=== PATIENT | male | born 1980 | race Caucasian/White ===

== ENCOUNTER 2018-01-10 19:55 | Observation (INO) | payer BC, SELFPAY ==
[2018-01-10 19:56] VITALS: BP 119/88; PULSE 89; RESP 18; TEMP 36.6; O2SAT 100; BMI 22.1
--- NOTE | 2018-01-10 20:03 | EKG12_ITS ---
Test Reason : RUHLIN Blood Pressure : / mmHG Vent. Rate : 084 BPM Atrial Rate : 084 BPM P-R Int : 170 ms QRS Dur : 102 ms QT Int : 386 ms P-R-T Axes : 062 068 060 degrees QTc Int : 456 ms Normal sinus rhythm Normal ECG Confirmed by JOSE RAFAEL STEARNS, ISAC ([id number]), subeditor ERIN DENNIS ([id number] on 01/14/2018 3:46:14 PM Referred By: Confirmed By:ISAC MANTILLA MD
[2018-01-10] MEDS: 0.9% Normal Saline 1,000 ML 1000 ML IV ×2 (20:05→21:42)
[2018-01-10 20:14] LABS: Absolute Lymphocyte Count 1.18 X10^3/ul (0.83-4.51); Absolute Neutrophil Count 6.8 X10^3/uL (2.0-7.7); Basophil# 0.02 X10^3/uL; Basophil% 0.2 % (0-1); Hematocrit 37.7 % (40-54); Hemoglobin 13.3 g/dl (13.0-16.5); Lymphocyte # 1.18 X10^3/ul (4.0); Lymphocyte % 13.5 % (19-41); Mean Corp Hgb Conc 35.3 g/gl (32-36); Mean Corpuscular Hgb 30.4 pg (27.0-32.0); Mean Corpuscular Volume 86.3 fL (80-94); Mean Platelet Vol. 9.7 fl (6.2-12.0); Monocyte# 0.68 X10^3/uL; Monocyte% 7.8 % (0-10); Neutrophil # 6.82 X10^3/uL (2.7-7.7); Neutrophil % 78.4 % (47-70); Platelet Count 229 K/mm3 (150-450); RBC Distribution Width CV 11.9 % (11.6-14.6); Red Blood Count 4.37 M/mm3 (4.6-6.2); White Blood Count 8.7 K/mm3 (4.4-11.0)
[2018-01-10 20:15] VITALS: BP 116/77; PULSE 84; RESP 17; O2SAT 100
[2018-01-10 20:15] LABS: POSITIVE COUNT NO; POSITIVE DIFFERENTIAL NO; POSITIVE MORPHOLOGY NO
[2018-01-10 20:29] LABS: Anion Gap 8 (5-15); BUN 18 mg/dL (7-18); BUN/Creat Ratio 12.1 RATIO (10-20); Calcium,Total 8.6 mg/dL (8.5-10.1); Chloride 103 mmol/L (98-107); Creatinine, Serum 1.49 mg/dL (0.70-1.30); EST Glomerular Filtration Rate 56 mL/min (>60); Est Glom Filt Rate - Afr Amer 67 mL/min (>60); Glucose 113 mg/dL (74-106); Potassium 3.4 mmol/L (3.5-5.1); Sodium Level 139 mmol/L (136-145)
[2018-01-10 21:14] LABS: CPK Total, Creatine Kinase 1393 U/L (39-308)
--- NOTE | 2018-01-10 21:32 | ED.VISSUMM ---
- ER Visit Summary Date of Service: 01/10/18 Chief Complaint: Shortness of breath History of Present Illness: The patient is a 37 M presenting for evaluation secondary shortness of breath. Patient states that he had just finished running a 50 mile race, he was seated, and stated that he was having increasing shortness of breath even after he had stopped running. He states that he was not having any chest pain or palpitations associated with this. Patient states that the symptoms lasted a number of minutes and then spontaneously resolved. He has never had any prior similar symptoms in the past. Denies any cardiovascular risk factors or PE risk factors. Review of systems otherwise negative. Physical Examination: Vital signs are within normal limits, patient is afebrile. General: Patient is well-nourished well-developed and in no acute distress. Head: Normocephalic, atraumatic Eyes: Pupils equal round and reactive bilaterally, extra occular motion intact bialterally ENT: Moist mucous membranes Neck: Supple, no lymphadenopathy, no JVD, no meningismus CVS: Heart regular rate and rhythm, no murmurs, there is an S3 gallop present, radial pulses 2+ and symmetric Resp: Respirations nondistressed, lung sounds clear bilaterally Abdomen: Soft, nontender, nondistended, no palpable masses, normal bowel sounds Back: Nontender Extremities: Nontender, atraumatic, active full range of motion, no peripheral edema Skin: warm, no rashes, no petechia Neuro: Alert and oriented x 4, CN 2-12 intact, no lateralizing neurological defecits Psyc: Normal affect Test Results: EKG demonstrates sinus rhythm of 84. Diffuse nonlocalizing ST segment elevation with normal T waves potentially consistent with a normal variant versus pericarditis pattern. CBC unremarkable, chemistry shows mild hypokalemia, troponin elevated at 0.06, CK elevated at 1600 Emergency Department Course and Treatment: Patient presented for evaluation secondary to a shortness of breath episode. His workup as noted above showed an elevated CK as well as an elevated troponin. This could all be secondary to the fact that the patient just ran a 50 miles, but regardless he had a shortness of breath episode which could have been a cardiac equivalent and has an elevated troponin as well as CK I believe that he requires observation admission at this time. I will discuss this with the hospitalist. Disposition: Admission Impression: 1. Shortness of breath 2. Elevated troponin 3. Rhabdomyolysis secondary to marathon This note was generated with [employer] dictation software. It may contain incorrect words, spelling, and punctuation that were not noted in review of the chart prior to signing ED Disposition - Plan for ED Patient: Chief Complaint: Shortness of Breath Referrals: Alf Person [Primary Care Provider] -
[2018-01-10 21:43] VITALS: BP 119/79; PULSE 86; RESP 24; TEMP 36.6; O2SAT 100
--- NOTE | 2018-01-10 22:26 | PCM.HP.STD ---
Problem List (1) SOB (shortness of breath) Status: Acute (2) Elevated troponin Status: Acute (3) Rhabdomyolysis Status: Acute History of Present Illness Date of Admission: 01/10/18 Chief Complaint: SOB The patient is a 37 year old male previously healthy is admitted for SOB. He ran a 50 miles marathon and has been SOB since the race. He tried to keep himself well hydrated and also tried to eat prior to the race. He had increase SOB after the race. He has no associated chest pain. No n/v. No palpitation. No cough. Nothing made his SOB better or worse. His SOB was constant but resolved by the time he went to the ED. Past Medical History Allergies Penicillins [PCN] Allergy (Verified 01/10/18 19:55) Other Home Medications: Ambulatory Orders Medication Instructions Recorded Duloxetine HCl [Duloxetine HCl] 1 tab PO DAILY 01/10/18 Nortriptyline HCl [Nortriptyline 1 tab PO DAILY 01/10/18 HCl] Surgical History: no surgical history Psychiatric History: No pertinent psych hx Lives: With Family Smoking Status: Never smoker Alcohol: None Drugs: None - *Family History Maternal History Items: No pertinent history Review of Systems Constitutional: Denies: Chills, Fever, Weight Change HEENT: Denies: Head Aches, Sinus Congestion, Sinus Drainage Cardiovascular: Denies: Chest Pain, Palpitations Respiratory: Denies: Cough, Shortness of breath at rest, Sputum production Gastrointestinal: Denies: Abdominal Pain, Nausea, Vomiting Genitourinary: Denies: Dysuria Musculoskeletal: Denies: Joint Pain, Joint Tenderness Skin: Denies: Rash, Wounds Neurological: Denies: Numbness, Tingling, Focal weakness Psychiatric: Denies: Anxiety, Depression, Homicidal Ideations, Suicidal Ideations Hematologic/ Lymphatic: Denies: Easy Bruising, Easy Bleeding VTE Information - Inpt Only VTE Present on Admission: No VTE Mechan Device Prophylaxis: SCD's VTE Pharm Prophylaxis ordered?: Yes Patient Problems: Active and Suspected Problems SOB (shortness of breath) (Acute) Elevated troponin (Acute) Rhabdomyolysis (Acute) - Physical Exam General: Alert, Oriented x3, Cooperative HEENT: Atraumatic, PERRLA, EOMI, Normocephalic Neck: Supple, No JVD, Negative Carotid Bruits Lungs: Clear to auscultation, Normal air movement Cardiovascular: Regular rate, No murmurs Abdomen: Bowel Sounds Present, Soft, Non Tender Extremities: No edema, Capillary Refill Less than 3 Seconds Skin: No rashes, No breakdown Musculoskeletal: No Tenderness to Palpation of Joints or Extremities Neurological: Cranial nerves II-XII grossly intact Psych/Mental Status: Normal Affect, Appropriate Vital Signs Temp Pulse Resp BP Pulse Ox 97.8 F 86 24 H 119/79 100 01/10/18 21:43 01/10/18 21:43 01/10/18 21:43 01/10/18 21:43 01/10/18 21:43 Assessment/Plan All Active Problems SOB (shortness of breath) (Acute) Elevated troponin (Acute) Rhabdomyolysis (Acute) 37 year old male previously healthy is admitted for SOB. 1) SOB: Probably secondary to oxygen debt from 50 mile marathon which he finished. Resolved by the time he got to the ED. EKG disclosed diffuse nonlocalizing ST segment elevation with normal T waves. Trop slightly elevated. Will get xray in AM. 2) Rhabdomyolysis: CK 1600 Most likely from marathon. Hydration. Renal function wnl. 3) Elevated trop: Probably from marathon race. Trop 0.06 Will get serial trops. Will get ECHO. 4) Prophylaxis: SCD / heparin.
[2018-01-10 22:30] VITALS: BP 130/82; PULSE 90; RESP 16; TEMP 36.7; O2SAT 98
[2018-01-10 22:32] VITALS: PULSE 90
[2018-01-10 22:46] VITALS: BMI 21.6
[2018-01-10] MEDS: 0.9% Normal Saline 1,000 ML 150 ML IV (22:54)
[2018-01-10 23:00] VITALS: BP 122/74
[2018-01-10] MEDS: Nortriptyline 25 MG Capsule 75 MG PO (23:13)
[2018-01-11] VITALS (10 sets, daily range): BP systolic 107–122; BP diastolic 70–79; PULSE 63–90; RESP 16–18; TEMP 36.4–36.6; O2SAT 95–99
[2018-01-11] MEDS: 0.9% Normal Saline 1,000 ML 150 ML IV ×3 (04:36→18:00)
--- NOTE | 2018-01-11 05:50 | RAD_ITS ---
STUDY: X-RAY CHEST REASON FOR EXAM: Male, 37 years old. Shortness of breath TECHNIQUE: 1 view COMPARISON: None. FINDINGS: The lungs are clear and expanded. There is no demonstrated pleural abnormality. Normal size heart. Normal mediastinum and mery. Normal visualized pulmonary arteries. Normal visualized aortic arch and descending thoracic aorta. Normal visualized thoracic spine. Normal visualized ribs, clavicles, and shoulders. There is no demonstrated abnormality of the visualized soft tissue structures of the upper abdomen. RAD/Chest 1 View (Portable) IMPRESSION: Normal x-ray examination of the chest. No acute findings in the lungs Electronically Signed: Kian Hansen, at 10:52 EDT Tel , Service support ,
--- NOTE | 2018-01-11 05:55 | ECHOD_ITS ---
Reason For Study: CHEST PAIN Procedure This was a 2D Doppler, Color Flow transthoracic echocardiogram. Exam performed portable in patient room. Left Ventricle Normal LV size. Left ventricular systolic function is normal. The estimated ejection fraction is 60 %. Transmitral diastolic flow velocities suggest mild (stage 1) diastolic dysfunction (reversed pattern). No regional wall motion abnormalities noted. Right Ventricle Normal RV size. Normal systolic function. Atria Normal left atrium. Normal right atrium. Mitral Valve Normal mitral valve. Tricuspid Valve Normal tricuspid valve. Aortic Valve Normal aortic valve. Pulmonic Valve Normal pulmonic valve. Great Vessels Normal aortic root. The pulmonary artery is normal size. Normal inferior vena cava. Pericardium/Pleural No pericardial effusion. MMode/2D Measurements & Calculations LVIDd: 4.0 cm IVSd: 0.96 cm Ao root diam: 3.4 cm LVIDs: 2.4 cm LVPWd: 1.0 cm LA dimension: 3.0 cm RVDd: 3.9 cm FS: 38.9 % LAV(MOD-bp): 39.0 ml LA A4 area: 11.6 cm2 RA A4 area: 14.6 cm2 LAV(MOD-bp) Indexed: 20.6 ml/m2 LAV(MOD-sp2): 40.6 ml LAV(MOD-sp4): 28.2 ml Time Measurements MV dec time: 0.20 sec Doppler Measurements & Calculations MV E max shiv: 111.0 cm/sec MV V2 max: 123.3 cm/sec MV P1/2t max shiv: 124.2 cm/sec MV A max shiv: 75.1 cm/sec MV max P.1 mmHg MV P1/2t: 80.3 msec MV E/A: 1.5 MV V2 mean: 62.9 cm/sec MV dec slope: 452.9 cm/sec2 MV mean P.9 mmHg MVA(P1/2t): 2.7 cm2 MV V2 VTI: 31.9 cm Ao V2 max: 144.5 cm/sec LV V1 max: 111.0 cm/sec PA V2 max: 82.8 cm/sec Ao max P.3 mmHg LV V1 max P.9 mmHg Ao V2 mean: 96.2 cm/sec LV V1 mean P.6 mmHg Ao mean P.1 mmHg LV V1 mean: 75.2 cm/sec Ao V2 VTI: 29.4 cm LV V1 VTI: 26.6 cm TR max shiv: 188.8 cm/sec TR max P.3 mmHg Interpretation Summary Normal LV size. Left ventricular systolic function is normal. The estimated ejection fraction is 60 %. Transmitral diastolic flow velocities suggest mild (stage 1) diastolic dysfunction (reversed pattern). Ordering Physician: LETTY CARDENAS Referring Physician: JERRY DELANEY Performed By: Valentin Bardales RCS
[2018-01-11 06:34] LABS: Hematocrit 36.8 % (40-54); Hemoglobin 12.5 g/dl (13.0-16.5); Mean Corpuscular Hgb 29.7 pg (27.0-32.0); Mean Corpuscular Volume 87.4 fL (80-94); Mean Platelet Vol. 9.8 fl (6.2-12.0); Platelet Count 206 K/mm3 (150-450); RBC Distribution Width CV 12.6 % (11.6-14.6); RBC Distribution Width SD 40.4 fl (35.1-43.9); Red Blood Count 4.21 M/mm3 (4.6-6.2); White Blood Count 7.5 K/mm3 (4.4-11.0)
[2018-01-11 07:02] LABS: D-Dimer Quantitative (DVT/PE) < 0.27 FEU/ug/m (0.27-0.49)
[2018-01-11 07:03] LABS: Scan Indicated on CBC? Y/N NO
[2018-01-11 07:07] LABS: ALB/GLOB Ratio 1.2 RATIO (0.9-2.4); AST(SGOT) 74 U/L (15-37); Alanine Aminotransfer ALT/SGPT 36 U/L (16-61); Albumin, Serum 3.2 g/dL (3.2-5.0); Alkaline Phosphatase 44 U/L (45-117); Anion Gap 5 (5-15); BUN 16 mg/dL (7-18); BUN/Creat Ratio 14.8 RATIO (10-20); Bilirubin, Direct 0.18 mg/dL (0.00-0.30); CPK Total, Creatine Kinase 2478 U/L (39-308); Calcium,Total 7.9 mg/dL (8.5-10.1); Chloride 109 mmol/L (98-107); Cholesterol 106 mg/dL (200); Creatinine, Serum 1.08 mg/dL (0.70-1.30); EST Glomerular Filtration Rate 81 mL/min (>60); Est Glom Filt Rate - Afr Amer 98 mL/min (>60); Estimated Creatinine Clearance 91.18 ml/min; Globulin 2.6 g/dL (2.2-4.2); Glucose 86 mg/dL (74-106); High Density Lipoprotein 50 mg/dL; Potassium 3.7 mmol/L (3.5-5.1); Protein, Total 5.8 g/dL (6.4-8.2); Sodium Level 142 mmol/L (136-145); Thyroid Stim Hormone (TSH) 4.95 uIU/mL (0.358-3.74); Triglycerides 38 mg/dL; Very Low Density Lipoprotein 8 mg/dL (5-40)
[2018-01-11 08:37] LABS: BNP,B-Type NATRIURETIC PEPTIDE 72.5 pg/mL (0-100)
[2018-01-11] MEDS: DULoxetine Hcl 60 MG Capsule PO (08:51)
--- NOTE | 2018-01-11 16:37 | PCM.PN.HOSP ---
Patient Problems: Active and Suspected Problems SOB (shortness of breath) (Acute) Elevated troponin (Acute) Rhabdomyolysis (Acute) Subjective: The patient was admitted yesterday for subjective shortness of breath after running 50 miles marathon. 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 He ran 100 miles marathon about 4 years ago and runs usually 25 miles. Patient was dehydrated with diaphoresis, shortness of breath probably from heat along with oxygen dept. Complaint of mild muscle soreness in legs Vitals are stable. CK elevated, worsened from 3078-1280 Troponin is mildly elevated probably from rhabdomyolysis Vitals/I&O's: Vital Signs Temp Pulse Resp BP Pulse Ox 97.9 F 81 16 122/79 H 99 01/11/18 10:30 01/11/18 15:01 01/11/18 10:30 01/11/18 10:30 01/11/18 10:30 Oxygen Delivery Method Room Air Weight: 154 lb 12.232 oz Body Mass Index (BMI) 21.6 Intake and Output for Last 24 Hours 01/09/18 01/10/18 01/11/18 23:59 23:59 23:59 Intake Total 3238 / 3238 Output Total 300 / 300 Balance 2938 / 2938 General: Alert, Oriented x3, Cooperative HEENT: Atraumatic, PERRLA, EOMI, Normocephalic Neck: Supple, No JVD, Negative Carotid Bruits Lungs: Clear to auscultation, Normal air movement Cardiovascular: Regular rate, Normal S1, Normal S2, No murmurs Abdomen: Bowel Sounds Present, Soft, Non Tender, Non-Distended Extremities: No edema, Capillary Refill Less than 3 Seconds Skin: No rashes, No breakdown Musculoskeletal: No Tenderness to Palpation of Joints or Extremities Neurological: Cranial nerves II-XII grossly intact Psych/Mental Status: Normal Affect, Appropriate Laboratory Results 01/10/18 23:10: Troponin I 0.051 H 01/11/18 02:00: Troponin I 0.049 H 01/11/18 05:40: WBC 7.5, RBC 4.21 L, Hgb 12.5 L, Hct 36.8 L, MCV 87.4, MCH 29.7, MCHC 34.0, RDW 12.6, RDW Differential 40.4, Plt Count 206, MPV 9.8 06/17/18 05:40: D-Dimer Quant (PE/DVT) < 0.27 L 01/11/18 05:40: Sodium 142, Potassium 3.7, Chloride 109 H, Carbon Dioxide 28.0, Anion Gap 5, BUN 16, Creatinine 1.08, Estim Creat Clear Calc 91.18, Est GFR (MDRD) Af Amer 98, Est GFR (MDRD) Non-Af 81, BUN/Creatinine Ratio 14.8, Glucose 86, Calcium 7.9 L, Total Bilirubin 0.90, Direct Bilirubin 0.18, AST 74 H, ALT 36, Alkaline Phosphatase 44 L, Total Creatine Kinase 2478 H, Total Protein 5.8 L, Albumin 3.2, Globulin 2.6, Albumin/Globulin Ratio 1.2, Triglycerides 38, Cholesterol 106, LDL Cholesterol 48, VLDL Cholesterol 8, HDL Cholesterol 50, TSH 4.95 H 01/11/18 05:40: B-Natriuretic Peptide 72.5 Current Medications Aspirin (Ecotrin) 81 mg PO DAILY@0800 [facility] Last Admin: 01/11/18 08:50 Dose: Not Given Duloxetine HCl (Cymbalta) 60 mg PO DAILY [facility] Last Admin: 01/11/18 08:51 Dose: 60 mg Heparin Sodium (Porcine) (Heparin Na) 5,000 unit SC Q12 [facility] Sodium Chloride () 1,000 mls @ 150 mls/hr IV .Q6H40M [facility] Last Admin: 01/11/18 13:11 Dose: 150 mls/hr Nortriptyline HCl (Pamelor) 75 mg PO DAILY@2200 [facility] Last Admin: 01/10/18 23:13 Dose: 75 mg Sodium Chloride () 5 - 30 ml IV UD PRN PRN Reason: SALINE FLUSH Medical Necessity - Tobacco Use Smoking Status: Never smoker Assessment/Plan All Active Problems SOB (shortness of breath) (Acute) Elevated troponin (Acute) Rhabdomyolysis (Acute) This is a 37 year old male previously healthy is admitted for SOB and elevated CK consistent with acute rhabdomyolysis. 1) SOB: Probably secondary to oxygen debt and heat exhaustion from 50 mile marathon which he finished. Resolved by the time he got to the ED. EKG disclosed diffuse nonlocalizing ST segment elevation with normal T waves. Trop slightly elevated. Chest x-ray reported normal. 2 days 2) acute rhabdomyolysis from marathon running: CK worsened from 1393 - 2478. Troponin slightly elevated 0.051-0.049; most likely from rhabdomyolysis. No chest pain. 2D echo is ordered. Most likely from marathon. IV fluid normal saline for hydration. 3. Acute kidney injury most probably from rhabdomyolysis: Admitting creatinine was 1.49, BUN 18. Today normal, creatinine 1.08. Follow electrolytes and creatinine trend. 4) DVT prophylaxis: Low risk, does not need prophylaxis. Early ambulation encouraged Code Visit Inpatient E&M: 87543 Subs Hosp L2
--- NOTE | 2018-01-11 16:45 | PN_ITS ---
Patient Problems: Active and Suspected Problems SOB (shortness of breath) (Acute) Elevated troponin (Acute) Rhabdomyolysis (Acute) Subjective: The patient was admitted yesterday for subjective shortness of breath after running 50 miles marathon. 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 He ran 100 miles marathon about 4 years ago and runs usually 25 miles. Patient was dehydrated with diaphoresis, shortness of breath probably from heat along with oxygen dept. Complaint of mild muscle soreness in legs Vitals are stable. CK elevated, worsened from 9057-3832 Troponin is mildly elevated probably from rhabdomyolysis Vitals/I&O's: Vital Signs Temp Pulse Resp BP Pulse Ox 97.9 F 81 16 122/79 H 99 01/11/18 10:30 01/11/18 15:01 01/11/18 10:30 01/11/18 10:30 01/11/18 10:30 Oxygen Delivery Method Room Air Weight: 154 lb 12.232 oz Body Mass Index (BMI) 21.6 Intake and Output for Last 24 Hours 01/09/18 01/10/18 01/11/18 23:59 23:59 23:59 Intake Total 3238 / 3238 Output Total 300 / 300 Balance 2938 / 2938 General: Alert, Oriented x3, Cooperative HEENT: Atraumatic, PERRLA, EOMI, Normocephalic Neck: Supple, No JVD, Negative Carotid Bruits Lungs: Clear to auscultation, Normal air movement Cardiovascular: Regular rate, Normal S1, Normal S2, No murmurs Abdomen: Bowel Sounds Present, Soft, Non Tender, Non-Distended Extremities: No edema, Capillary Refill Less than 3 Seconds Skin: No rashes, No breakdown Musculoskeletal: No Tenderness to Palpation of Joints or Extremities Neurological: Cranial nerves II-XII grossly intact Psych/Mental Status: Normal Affect, Appropriate Laboratory Results 01/10/18 23:10: Troponin I 0.051 H 01/11/18 02:00: Troponin I 0.049 H 01/11/18 05:40: WBC 7.5, RBC 4.21 L, Hgb 12.5 L, Hct 36.8 L, MCV 87.4, MCH 29.7 , MCHC 34.0, RDW 12.6, RDW Differential 40.4, Plt Count 206, MPV 9.8 06/17/18 05:40: D-Dimer Quant (PE/DVT) < 0.27 L 01/11/18 05:40: Sodium 142, Potassium 3.7, Chloride 109 H, Carbon Dioxide 28.0, Anion Gap 5, BUN 16, Creatinine 1.08, Estim Creat Clear Calc 91.18, Est GFR ( MDRD) Af Amer 98, Est GFR (MDRD) Non-Af 81, BUN/Creatinine Ratio 14.8, Glucose 86, Calcium 7.9 L, Total Bilirubin 0.90, Direct Bilirubin 0.18, AST 74 H, ALT 36 , Alkaline Phosphatase 44 L, Total Creatine Kinase 2478 H, Total Protein 5.8 L, Albumin 3.2, Globulin 2.6, Albumin/Globulin Ratio 1.2, Triglycerides 38, Cholesterol 106, LDL Cholesterol 48, VLDL Cholesterol 8, HDL Cholesterol 50, TSH 4.95 H 01/11/18 05:40: B-Natriuretic Peptide 72.5 Current Medications Aspirin (Ecotrin) 81 mg PO DAILY@0800 [facility] Last Admin: 01/11/18 08:50 Dose: Not Given Duloxetine HCl (Cymbalta) 60 mg PO DAILY [facility] Last Admin: 01/11/18 08:51 Dose: 60 mg Heparin Sodium (Porcine) (Heparin Na) 5,000 unit SC Q12 [facility] Sodium Chloride () 1,000 mls @ 150 mls/hr IV .Q6H40M [facility] Last Admin: 01/11/18 13:11 Dose: 150 mls/hr Nortriptyline HCl (Pamelor) 75 mg PO DAILY@2200 [facility] Last Admin: 01/10/18 23:13 Dose: 75 mg Sodium Chloride () 5 - 30 ml IV UD PRN PRN Reason: SALINE FLUSH Medical Necessity - Tobacco Use Smoking Status: Never smoker Assessment/Plan All Active Problems SOB (shortness of breath) (Acute) Elevated troponin (Acute) Rhabdomyolysis (Acute) This is a 37 year old male previously healthy is admitted for SOB and elevated CK consistent with acute rhabdomyolysis. 1) SOB: Probably secondary to oxygen debt and heat exhaustion from 50 mile marathon which he finished. Resolved by the time he got to the ED. EKG disclosed diffuse nonlocalizing ST segment elevation with normal T waves. Trop slightly elevated. Chest x-ray reported normal. 2 days 2) acute rhabdomyolysis from marathon running: CK worsened from 1393 - 2478. Troponin slightly elevated 0.051-0.049; most likely from rhabdomyolysis. No chest pain. 2D echo is ordered. Most likely from marathon. IV fluid normal saline for hydration. 3. Acute kidney injury most probably from rhabdomyolysis: Admitting creatinine was 1.49, BUN 18. Today normal, creatinine 1.08. Follow electrolytes and creatinine trend. 4) DVT prophylaxis: Low risk, does not need prophylaxis. Early ambulation encouraged Code Visit Inpatient E&M: 74276 Subs Hosp L2
[2018-01-11] MEDS: Nortriptyline 25 MG Capsule 75 MG PO (21:43)
[2018-01-12] MEDS: 0.9% Normal Saline 1,000 ML 150 ML IV ×2 (01:54→08:48)
[2018-01-12 03:34] VITALS: PULSE 69
[2018-01-12 04:30] VITALS: BP 108/63; PULSE 75; RESP 16; TEMP 36.6; O2SAT 97
[2018-01-12 06:29] LABS: Anion Gap 5 (5-15); BUN 11 mg/dL (7-18); BUN/Creat Ratio 13.6 RATIO (10-20); CPK Total, Creatine Kinase 1516 U/L (39-308); Calcium,Total 7.8 mg/dL (8.5-10.1); Chloride 110 mmol/L (98-107); Creatinine, Serum 0.81 mg/dL (0.70-1.30); EST Glomerular Filtration Rate 113 mL/min (>60); Est Glom Filt Rate - Afr Amer 137 mL/min (>60); Estimated Creatinine Clearance 121.57 ml/min; Glucose 88 mg/dL (74-106); Potassium 3.8 mmol/L (3.5-5.1); Sodium Level 143 mmol/L (136-145)
[2018-01-12 07:00] VITALS: PULSE 78
[2018-01-12] MEDS: DULoxetine Hcl 60 MG Capsule PO (08:48)
[2018-01-12 08:49] VITALS: BP 124/84; PULSE 71; RESP 12; TEMP 36.7; O2SAT 97
[2018-01-12 11:00] VITALS: PULSE 63
--- NOTE | 2018-01-12 12:46 | PCM.DC ---
- Discharge Diagnoses Current Active Problems: Current Active and Chronic Problems SOB (shortness of breath) (Acute) Elevated troponin (Acute) Rhabdomyolysis (Acute) You will use the following diet at home:: No restrictions Your food should be the consistency of: Regular Additional Activity Instructions:: Drink a lot of fluids Allergies/Adverse Reactions: Allergies Penicillins [PCN] Allergy (Verified 01/10/18 19:55) Other Medications to take at Discharge Duloxetine HCl [Duloxetine HCl] 1 tab PO DAILY 01/10/18 Nortriptyline HCl [Nortriptyline HCl] 1 tab PO DAILY 01/10/18 Primary Care Physician: Alf Person [Primary Care Provider] - Please follow up with your Primary Care Physician in: 2-3 days for repeat BMP as well as CPK levels Proposed Discharge Date: 01/12/18
--- NOTE | 2018-01-12 12:48 | PCM.DC.SUM ---
Discharge Date and Diagnosis - Problem List Patient Problems: Active and Suspected Problems SOB (shortness of breath) (Acute) Elevated troponin (Acute) Rhabdomyolysis (Acute) Date of Admission: 01/10/18 Date of Discharge: 01/12/18 - Primary Discharge Diagnosis Active and Suspected Problems SOB (shortness of breath) (Acute) Elevated troponin (Acute) Rhabdomyolysis (Acute) Hospital Course and Treatment Imaging Results: Clinical Impression(s) from Imaging Studies Chest X-Ray 01/11/18 05:50 IMPRESSION: Normal x-ray examination of the chest. No acute findings in the lungs Electronically Signed: Kian Hansen, at 10:52 EDT Tel , Service support , Summary of Care Provided: This is a 37 year old male previously healthy is admitted for SOB and elevated CK following a 50 mile marathon and assessment of acute rhabdomyolysis was made admitted to regular nursing floor for further management 1. Acute rhabdomyolysis following marathon. Admitted to regular nursing floor managed with IV fluids. Patient's CPK levels were trending down the time of discharge was instructed to drink a lot of fluids and to follow-up with his primary care physician Dr. Person in 2-3 days for repeat CPK levels as well as BMP 2. Shortness of breath secondary to exertion from his marathon. Also had elevated troponin which was attributed to demand ischemia patient underwent a 2D echo which failed to demonstrate any regional wall motion abnormalities 3. Acute kidney injury secondary to rhabdomyolysis managed with IV fluids; resolved at the time of discharge Additional Activity Instructions:: Drink a lot of fluids Home Medications: Medications to take at Discharge Duloxetine HCl [Duloxetine HCl] 1 tab PO DAILY 01/10/18 Nortriptyline HCl [Nortriptyline HCl] 1 tab PO DAILY 01/10/18 Primary Care Physician: Alf Person [Primary Care Provider] - Please follow up with your Primary Care Physician in: 2-3 days for repeat BMP as well as CPK levels Disposition: Home Minutes spent on discharge:: 45 Patient Condition:: Stable Medical Necessity - Tobacco Use Smoking Status: Never smoker Meaningful Use Info Meaningful Use Diagnoses (Choose all that apply): None applicable Code Visit Inpatient E&M: 75648 Disch Hosp
== END 2018-01-12 12:47 | disposition home or self-care (01) ==
LOC: ED 20:22 → PCU 22:02
PROVIDERS: Internal Medicine; Admitting Provider Internal Medicine; Emergency Provider Emergency Medicine; Family Provider Family Medicine; Visit Provider Internal Medicine
DX: R06.02 Shortness of breath (principal); M62.82 Rhabdomyolysis; N17.9 Acute kidney failure, unspecified; E87.6 Hypokalemia; Z79.899 Other long term (current) drug therapy; E86.0 Dehydration
CPT/HCPCS: 36415; 71045; 80048; 80053; 80061; 82248; 82550; 83880; 84443; 84484; 85025; 85027; 85379; 93005; 93306; 96360; 96361; 99218; 99285; J7030; A4216; G0378